=== PATIENT | female | born 1995 ===

== ENCOUNTER 2017-10-14 10:27 | Outpatient (CLI) | payer OTHER ==
[~2017-10-14] VITALS: Ht 154.9 cm; Wt 81.6 kg
== END 2017-10-14 10:40 | disposition home or self-care (01) ==
LOC: OFIC 805 10:27
DX: D23.22 Other benign neoplasm of skin of left ear and external auricular canal (principal)

== ENCOUNTER 2017-10-20 06:43 | Day surgery (SDC) | payer OTHER ==
[2017-10-20] MEDS ORDERED: DUI500 PO (15:29)
[2017-10-20] MEDS ORDERED: APAP500 MG PO (15:30)
== END 2017-10-20 17:20 | disposition home or self-care, planned readmission (81) ==
LOC: CIR.AMB 06:43
DX: L72.0 Epidermal cyst (principal)

== ENCOUNTER 2017-10-21 11:12 | Outpatient (CLI) | payer OTHER ==
[~2017-10-21] VITALS: Ht 152.4 cm; Wt 81.6 kg
[~2017-10-21 11:12] MED LIST: APAP500 MG PO; DUI500 PO
== END 2017-10-21 11:35 | disposition home or self-care (01) ==
LOC: OFIC 805 11:12
DX: D14.0 Benign neoplasm of middle ear, nasal cavity and accessory sinuses (principal)

== ENCOUNTER 2020-10-05 16:09 | Emergency (ER) | payer OTHER ==
[~2020-10-05] VITALS: Ht 154.9 cm; Wt 89.8 kg
[2020-10-05] MEDS ORDERED: PROZAC10 M1 (16:24)
[2020-10-05] MEDS ORDERED: NYSTATIN100000 UNI PO (19:03)
[2020-10-05] MEDS ORDERED: AMOX1TAB5 PO (19:03)
[2020-10-05] MEDS ORDERED: MEDROLPACK PO (19:04)
== END 2020-10-05 20:21 | disposition home or self-care (01) ==
LOC: ER 16:09
DX: J03.90 Acute tonsillitis, unspecified (principal)